=== PATIENT | male | born 1960 | race Caucasian/White ===

== ENCOUNTER 2022-01-09 05:46 | Emergency (ER) | payer BC ==
[~2022-01-09] VITALS: Ht 180.3 cm; Wt 127.5 kg
[2022-01-09] MEDS ORDERED: LISINOPRIL5 MG PO (06:37)
[2022-01-09] MEDS ORDERED: CARVEDILOL3.125 MG PO (06:37)
[2022-01-09] MEDS ORDERED: QVAR REDIHALE10.6 GM INH (06:38)
[2022-01-09] MEDS ORDERED: COZAAR25 MG PO (07:13)
--- NOTE | 2022-01-09 21:10 | EKG ---
[facility] [address] [facility] [place] [address] Signed Normal sinus rhythm Normal ECG No previous ECGs available Confirmed by Maile Sanchez MD () on 01/09/2022 9:10:36 PM Electronically Signed By: MAILE SANCHEZ MD 01/09/222109 PATIENT NAME: MATTHEW ZHONG Electrocardiogram DATE OF : 56 PHYSICIAN: MAILE SANCHEZ MD REPORT #: [id number] REPORT IS CONFIDENTIAL AND NOT TO BE RELEASED WITHOUT AUTHORIZATION
== END 2022-01-09 07:38 | disposition home or self-care (01) ==
LOC: ED 05:46
DX: M94.0 Chondrocostal junction syndrome [Tietze] (principal); R05.9 Cough, unspecified; T46.4X5A Adverse effect of angiotensin-converting-enzyme inhibitors, initial encounter; I10 Essential (primary) hypertension; Z79.899 Other long term (current) drug therapy
CPT/HCPCS: 36415; 71045; 80053; 81001; 83690; 83880; 84484; 85025; 85379; 93005; 93010; 96374; 96375; 99285-25; A9270; J0360; J1885